=== PATIENT | female | born 1965 | race Caucasian/White ===

== ENCOUNTER → 2021-07-04 08:48 | Outpatient (CLI) | payer BC, SELFPAY ==
[2021-07-04 09:10] LABS: Basophils % 0.4 % (0.1-2.0); Eosinophils # 0.1 K/mm3 (0.0-0.4); Hematocrit 39.8 % (37.0-47.0); Hemoglobin 13.2 g/dL (12.2-16.2); Lymphocytes % 19.5 % (10-50); Mean Corpuscular HGB Conc 33.2 g/dL (31.8-35.4); Mean Corpuscular Hemoglobin 30.7 pg (27.0-31.2); Mean Corpuscular Volume 92.5 fl (81-99); Mean Platelet Volume 9.2 fl (7.4-10.4); Monocytes # 0.3 K/mm3 (0.1-1.0); Monocytes % 5.8 % (1.7-9.3); Neutrophils # 3.7 K/mm3 (1.8-7.8); Neutrophils % 72.3 % (37.0-80.0); Platelet Count 313 K/mm3 (142-424); Red Blood Count 4.31 M/mm3 (4.20-5.40); Red Cell Distribution Width 13.5 % (11.5-17.5); White Blood Count 5.1 K/mm3 (4.8-10.8)
[2021-07-04 09:41] LABS: Alanine Aminotransferase 14 U/L (12-78); Albumin Level 3.9 g/dl (3.5-5.0); Albumin/Globulin Ratio 1.4 (1.1-1.8); Alkaline Phosphatase 45 U/L (38-126); Aspartate Amino Transferase 24 U/L (14-36); Bilirubin,Total 0.5 mg/dl (0.2-1.3); Blood Urea Nitrogen 11 mg/dl (7-17); Carbon Dioxide 26 mmol/L (22.0-30.0); Chloride 104 mmol/L (98-107); Estimated Glomerular Filt Rate 105 ml/min (>60); GFR (African American) 127 ML/MIN (>60); Globulin 2.7 g/dL (1.3-3.2); Glucose 96 mg/dl (74-100); Sodium 138 mmol/L (136-145); Total Protein,Serum 6.6 g/dl (6.3-8.2)
[2021-07-05 19:52] LABS: Deamidated Gliadin Abs, IgA 5 units (0-19); Deamidated Gliadin Abs, IgG 2 units (0-19); Endomysial IgA Antibody Negative (Negative); Tissue Transglutaminase IgA Ab <2 U/mL (0-3); Tissue Transglutaminase IgG Ab 5 U/mL (0-5)
[2021-07-06 07:22] LABS: Reticulin IgA Antibody Negative titer (Neg:<1:2.5)
[2021-07-08 15:13] LABS: Saccharomyces cerevisiae, IgA <20.0 Units (0.0-24.9); Saccharomyces cerevisiae, IgG 26.3 Units (0.0-24.9)
== END ==
LOC: LAB 08:49
PROVIDERS: Nurse Practitioner Family; Visit Provider Internal Medicine Gastroenterology
DX: Z01.812 Encounter for preprocedural laboratory examination (principal); Z11.52 Encounter for screening for COVID-19; R10.12 Left upper quadrant pain; R14.0 Abdominal distension (gaseous); R11.2 Nausea with vomiting, unspecified; Z12.11 Encounter for screening for malignant neoplasm of colon
CPT/HCPCS: 36415; 80053; 83516; 85025; 86255; 86256; 86671; C9803; U0003; U0005

== ENCOUNTER 2021-07-05 09:52 | Day surgery (SDC) | payer BC, SELFPAY ==
[2021-07-03 14:06] VITALS: BMI 22.6
--- NOTE | 2021-07-04 09:46 | SUR.PREOP ---
VOICEMAIL LEFT WITH PT TO RETURN CALL- NEED TO MOVE PT UP INTO 1100 SCOPE TIME ON Thu07/05/21. NEED TO FOLLOW UP LATER IF PT DOES NOT RETURN CALL.
--- NOTE | 2021-07-04 10:49 | SUR.PREOP ---
Roderick THACKER SPOKE WITH PT AND IS ABLE TO MOVE INTO THE 1100 SCOPE SLOT. REGISTRATION NOTIFIED. OFFICE STAFF AT DR VINSON NOTIFIED. VERBALIZED UNDERSTANDING.
[2021-07-05] VITALS (7 sets, daily range): BP systolic 86–132; BP diastolic 55–86; PULSE 66–72; RESP 14–18; TEMP 36.1–36.7; O2SAT 96–100
--- NOTE | 2021-07-05 11:48 | HMH.ANESCL ---
[facility] Anesthesia Checklist - Patient Identification Patient Identification: Arm Band - Structural Data Admitted From: Home Planned Operative Procedure/s: Colonoscopy Consent for Planned Operative Procedure(s) Verified: Yes - NPO Status Verified Time NPO: 00:00 - Airway Assessment C-Spine Mobility Assessed: Yes TMJ Mobility Assessed: Yes Dentition: Good Dentition - Neurological Assessment Level of Consciousness: Awake Hx Seizures: No Numbness or tingling in extremities: No - Anesthesia Plan Anesthesia Risk discussed: Yes Anesthesia Plan: Verified ASA Class: II Anesthesia Type: MAC [facility] History I have reviewed the patient's past medical history: Yes Medical History: Denies:: Cancer, Diabetes Mellitus Type 1, Diabetes Mellitus Type 2, Internal Pacemaker, MRSA, Seizures *Have you ever received a pneumonia vaccine?: No *Have you received a flu vaccine this season?: Yes (2019) Anesthesia experience/problems:: None Other Surgeries: No: Pacemaker Amputation: No - *Social History Last grade of school completed: Some college Smoking Status: Never smoker Alcohol Intake: current Alcohol Intake Frequency:: a few times a month Substance Use Type: denies use *Occupational Status:: employed Housing: house Household Members: spouse *Travel in the last 8 weeks: None Family Hx:: Unable to obtain
--- NOTE | 2021-07-05 12:13 | P.PCN_ITS ---
[facility] Procedure Note Procedure Note:: Colonoscopy Procedure Report: Colonoscopy with cold biopsies Endoscopist: Cecilio Bowie II, MD Referring physician: Amber Frank MD Date of Procedure: July 05, 2021 Equipment: Olympus 190 variable stiffness pediatric colonoscope Sedation: MAC sedation Indication: Mrs. Kwong is a 55-year-old female who is here for diagnostic colonoscopy. She developed a change in bowel habits about a year ago. She reports chronic diarrhea with bowel urgency, diarrhea and abdominal pain. This has worsened over the last 3 to 4 months. Her abdominal pain is primarily in the left upper quadrant. She did try Nexium for over a month and did not have any improvement. She has had moderate bloating and some gassiness. She has lost 10 pounds in the last couple of months. She has had some rectal pain. She has occasional spotting of blood possibly from hemorrhoids. Intermittently she will have postprandial vomiting and feels distended. She does get some lower abdominal discomfort which radiates into the back. She did have cholecystectomy in 1998. She has had a couple of CAT scans earlier in the year and there was notable unchanged hepatic hemangiomas. The remainder of the abdominal organs including the pancreas and spleen were normal. She does state that her mother has ulcerative colitis. She reports no family history of colon cancer. Procedure: Prior to the procedure, a history and physical exam was performed, and patient's medications and allergies were reviewed. The risks, benefits and alternatives of the sedation and procedure were discussed with the patient. All questions were answered and informed consent was obtained. The patient was brought to the procedure room. Patient identification and proposed procedure were verified by the physician and the nurse. The patient was placed in a left lateral decubitus position and the scope was passed under direct vision. Throughout the procedure, the patient's blood pressure, pulse, and oxygen saturations were monitored continuously. The colonoscopy was accomplished without difficulty. The patient tolerated the procedure well. Findings: On digital rectal examination there was normal rectal tone. There were no external hemorrhoids. The colonoscope was introduced through the anal canal to the rectum and advanced to the cecum. The ileocecal valve and appendiceal orifice were identified. The scope was advanced a short distance into the ileum which appeared grossly normal. The scope was then withdrawn into the colon. The cecum, ascending and transverse colon were normal. Cold biopsies were taken from the right colon to rule out microscopic colitis. There was a diminutive 3 mm polyp in the descending colon removed via cold biopsy. There was some angulation at the splenic flexure suggestive of splenic flexure syndrome. The remainder of the sigmoid and rectum were normal. Upon retroflexion within the rectum there were grade 1-2 internal hemorrhoids.The preparation was excellent throughout with [place] Preparation Score of 9. The cecal time was 12 minutes. Impression: 1. Diminutive descending colon polyp 2. 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 Grade 1-2 internal hemorrhoids Plan: There was no mucosal evidence of colitis or Crohn's disease but I will follow-up the biopsies. I do suspect IBS?D. I would recommend sucrose C 13 breath testing to rule out CSID. If the biopsies are negative for microscopic colitis, I would consider additional treatment for IBS?D and visceral sensitivity. I will discuss this with the patient and family.
== END 2021-07-05 13:06 | disposition home or self-care (01) ==
LOC: OUTP 09:54
PROVIDERS: PCP Internal Medicine; Visit Provider Internal Medicine Gastroenterology
PROC: 0DJD8ZZ Inspection of Lower Intestinal Tract, Via Natural or Artificial Opening Endoscopic (ICD-10-PCS; CPT 45378; principal; 2021-07-05 11:00)
DX: K63.5 Polyp of colon (principal); K64.0 First degree hemorrhoids; Z79.899 Other long term (current) drug therapy; Z79.890 Hormone replacement therapy
CPT/HCPCS: 45380; J2704